=== PATIENT | female | born 1990 | race Caucasian/White ===

== ENCOUNTER 2016-10-26 18:45 | Emergency (ER) | payer OTHER ==
[2016-10-26] MEDS ORDERED: Ketorolac INJ* 60 MG/2 ML VIAL IM ONE (22:44)
[2016-10-26] MEDS ORDERED: LORazepam TAB(*) 1 MG PO ONE (22:45)
[2016-10-26 23:04] VITALS: BP 129/63
--- NOTE | 2016-10-26 23:10 | ED ---
Back Pain - HPI Summary HPI Summary: Patient presents with low back pain. Denies injury. Previous issues with low back pain. MRI shows herniated disc which has been stable since 2014. She is on chronic muscle relaxers but denies pain management. She takes Naproxen daily without relief. Pain radiates down to bilateral legs with no numbness or tingling. - History of Current Complaint Chief Complaint: EDBackInjuryPain Stated Complaint: BACK PAIN Time Seen by Provider: 10/26/16 21:52 Hx Obtained From: Patient Hx Last Menstrual Period: 2 weeks ago Onset/Duration: Gradual Onset Onset/Duration: Started Hours Ago Timing: Constant Back Pain Location: Is Discrete @ - low back Severity Initially: Moderate Severity Currently: Moderate Pain Intensity: 9 Pain Scale Used: 0-10 Numeric Character: Aching, Throbbing Aggravating Symptom(s): Movement, Lifting Alleviating Symptom(s): Rest, Position Associated Signs And Symptoms: Positive: Negative - Risk Factors AAA Risk Factors: Negative TAD Risk Factors: Negative Cauda Equina Risk Factors: Negative Epidural Abscess Risk Factors: Negative - Allergies/Home Medications Allergies/Adverse Reactions: Allergies Allergy/AdvReac Type Severity Reaction Status Date / Time Ciprofloxacin Allergy Intermediate Hives Verified 09/17/16 13:34 Ketorolac Tromethamine Allergy Shortness Verified 09/17/16 13:34 [From Toradol] of Breath Metronidazole [From Flagyl] Allergy Rash Verified 09/17/16 13:34 NSAIDs Allergy Shortness Verified 09/17/16 13:34 of Breath PMH/Surg Hx/FS Hx/Imm Hx Previously Healthy: Yes Endocrine/Hematology History: Denies: Hx Diabetes, Hx Thyroid Disease Cardiovascular History: Denies: Hx Hypertension, Hx Pacemaker/ICD Respiratory History: Denies: Hx Asthma, Hx Chronic Obstructive Pulmonary Disease (COPD) GI History: Denies: Hx Ulcer History: Denies: Hx Renal Disease Sensory History: Denies: Hx Hearing Aid Psychiatric History: Reports: Hx Panic Disorder - Surgical History Surgery Procedure, Year, and Place: Appendectomy. D+C. Gallbladder - Immunization History Date of Influenza Vaccine: none Hx Pertussis Vaccination: No Immunizations Up to Date: Unable to Obtain/Confirm Infectious Disease History: No Infectious Disease History: Denies: Hx Hepatitis, Hx Human Immunodeficiency Virus (HIV), History Other Infectious Disease, Traveled Outside the [place] in Last 30 Days - Social History Occupation: Unemployed Lives: With Family Alcohol Use: None Hx Substance Use: No Substance Use Type: Reports: None Hx Tobacco Use: No Smoking Status (MU): Never Smoked Tobacco Review of Systems Constitutional: Negative Eyes: Negative Cardiovascular: Negative Respiratory: Negative Genitourinary: Negative Positive: no symptoms reported, see HPI Positive: Arthralgia Neurological: Negative Psychological: Normal All Other Systems Reviewed And Are Negative: Yes Physical Exam Triage Information Reviewed: Yes Vital Signs On Initial Exam: Initial Vitals Temp Pulse Resp BP Pulse Ox 98.8 F 87 18 116/79 100 10/26/16 18:53 10/26/16 18:53 10/26/16 18:53 10/26/16 18:53 10/26/16 18:53 Vital Signs Reviewed: Yes Appearance: Positive: Well-Appearing, Well-Nourished Skin: Positive: Warm, Skin Color Reflects Adequate Perfusion Neck: Positive: Supple, Nontender, No Lymphadenopathy Respiratory/Lung Sounds: Positive: Clear to Auscultation, Breath Sounds Present Cardiovascular: Positive: Normal, RRR, Pulses are Symmetrical in both Upper and Lower Extremities Musculoskeletal: Positive: Other - Due to patient pain around injury, physical exam was limited. Limited ROM. Flip Test negative. Straight leg raise positive. Kernig test positive. Negative Bab[place]i. Hip flexion and extension, knee extension, dorsiflexion, great toe extension and plantar flexion intact. Rotating at hips limited d/t pain. Nerve roots L4-S2 reflexes intact. L1-S2 nerve root sensory intact. No saddle anesthesia. Gait normal. Neurological: Positive: Sensory/Motor Intact, Alert, Oriented to Person Place, Time, Other Psychiatric: Positive: Normal AVPU Assessment: Alert Diagnostics - Vital Signs Vital Signs Temp Pulse Resp BP Pulse Ox 10/26/16 19:59 98.8 F 87 18 116/79 99 10/26/16 18:53 98.8 F 87 18 116/79 100 - Laboratory Lab Statement: Any lab studies that have been ordered have been reviewed, and results considered in the medical decision making process. Back Pain Course/Dx - Course Course Of Treatment: D/t patient chronic back pain, did not image the spine. Patient agrees. Encouraged Ibuprofen 600mg three times daily with meals for pain. Return precautions given. Patient prefers to take toradol and continue her at home muscle relaxers. Lidocaine patch rx. Educated patient regarding back injuries and healing time and the need for further imaging if discomfort is present for > 6 weeks. Given pain management and muscle relaxers for relief of pain. Patient OK with discharge and will follow up as directed. - Diagnoses Differential Diagnosis/HQI/PQRI: Positive: Herniated Disc, Strain, Sprain Provider Diagnoses: Low back pain Discharge - Discharge Plan Condition: Stable Disposition: HOME Prescriptions: Ketorolac TAB * [Toradol TAB *] 10 mg PO Q6H #16 tab Lidocaine PATCH 5%* [Lidoderm 5% Patch*] 1 patch TRANSDERM DAILY #5 patch Patient Education Materials: Acute Low Back Pain (ED), Lower Back Exercises (ED ) Referrals: Gardenia Velasco MD [Primary Care Provider] - Additional Instructions: Return to ED if symptoms worsen or fail to improve, notice worsening swelling, warmth or redness around the joint, develop fever, or pain is uncontrolled with OTC medications. Moist heat to the area for comfort. Warm showers or baths may improve symptoms. It is important to remain mobile as tolerated to prevent stiffening of the joints and delay healing. Follow up with your PCP. If symptoms remain for > 6 weeks, please seek special medical attention from an orthopedic physician.
== END 2016-10-26 23:01 | disposition home or self-care (01) ==
LOC: ED 18:45
DX: M54.5 Low back pain (principal)
CPT/HCPCS: 96372; 99282; A9270-GY; J1885

== ENCOUNTER 2016-12-11 12:33 | Emergency (ER) | payer OTHER ==
--- NOTE | 2016-12-11 13:12 | ED ---
Skin Complaint - HPI Summary HPI Summary: This patient is a 26 year old F presenting to [facility] with a chief complaint of rash at bilateral UE since yesterday. The CC is described as worsening, painful , warm, burning, and aching. The patient rates the pain 4/10 in severity. Symptoms aggravated by nothing. Symptoms alleviated by nothing. Patient reports low grade fever, nausea, and slight abdominal pain. Patient denies SOB, and throat tightness. She reports that something might have bitten me. She denies an acknowledged tick bite. PMHx of anxiety. FHX anxiety; Lives with family; No tobacco, alch, drugs etc.; Physical Exam Findings include: Right upper extremity target lesion. Erythematous macules. Two of which are with a slightly raised border. Internal pallors or central clearing with 2cm in circumference. Two left lateral arm. One at ventral surface of right wrist. Other erythematous macules are with no central clearing. She also states that she slept on her couch a few nights ago. - History of Current Complaint Chief Complaint: EDRashSkinAbscess Time Seen by Provider: 12/11/16 12:42 Stated Complaint: RASH ON LT ARM Hx Obtained From: Patient Hx Last Menstrual Period: 2 weeks ago Onset/Duration: Started Days Ago Skin Exposure Onset/Duration: Days Ago Timing: Constant Onset Severity: Moderate Current Severity: Moderate Pain Intensity: 4 Pain Scale Used: 0-10 Numeric Skin Location: Arm Character: Pruritus, Redness, Raised Aggravating Symptom(s): Nothing Alleviating Symptom(s): Nothing Associated Signs & Symptoms: Nausea Related History: Insect Bite/Sting - Allergy/Home Medications Allergies/Adverse Reactions: Allergies Allergy/AdvReac Type Severity Reaction Status Date / Time Ciprofloxacin Allergy Intermediate Hives Verified 12/11/16 12:38 Ketorolac Tromethamine Allergy Shortness Verified 12/11/16 12:38 [From Toradol] of Breath Metronidazole [From Flagyl] Allergy Rash Verified 12/11/16 12:38 NSAIDs Allergy Shortness Verified 12/11/16 12:38 of Breath PMH/Surg Hx/FS Hx/Imm Hx Previously Healthy: Yes Endocrine/Hematology History: Denies: Hx Diabetes, Hx Thyroid Disease Cardiovascular History: Denies: Hx Hypertension, Hx Pacemaker/ICD Respiratory History: Denies: Hx Asthma, Hx Chronic Obstructive Pulmonary Disease (COPD) GI History: Denies: Hx Ulcer History: Denies: Hx Renal Disease Sensory History: Denies: Hx Hearing Aid Psychiatric History: Reports: Hx Panic Disorder - Surgical History Surgery Procedure, Year, and Place: Appendectomy. D+C. Gallbladder - Immunization History Date of Influenza Vaccine: none Hx Pertussis Vaccination: No Immunizations Up to Date: Unable to Obtain/Confirm Infectious Disease History: No Infectious Disease History: Denies: Hx Hepatitis, Hx Human Immunodeficiency Virus (HIV), History Other Infectious Disease, Traveled Outside the [place] in Last 30 Days - Social History Occupation: Employed Full-time Lives: With Family Alcohol Use: None Hx Substance Use: No Substance Use Type: Reports: None Hx Tobacco Use: No Smoking Status (MU): Never Smoked Tobacco Review of Systems Constitutional: Negative Eyes: Negative Cardiovascular: Negative Respiratory: Negative Positive: Abdominal Pain - intermittent, Nausea Positive: no symptoms reported, see HPI Positive: Rash Neurological: Negative All Other Systems Reviewed And Are Negative: Yes Physical Exam Triage Information Reviewed: Yes Vital Signs On Initial Exam: Initial Vitals Temp Pulse Resp BP Pulse Ox 98.5 F 88 16 117/76 100 12/11/16 12:35 12/11/16 12:35 12/11/16 12:35 12/11/16 12:35 12/11/16 12:35 Vital Signs Reviewed: Yes Appearance: Positive: Well-Appearing, No Pain Distress Skin: Positive: Warm, Skin Color Reflects Adequate Perfusion, Other - erythematous macules to the upper bilateral shoulders Head/Face: Positive: Normal Head/Face Inspection Eyes: Positive: EOMI, NARCISO, Conjunctiva Clear ENT: Positive: Hearing grossly normal Neck: Positive: Supple, No Lymphadenopathy Respiratory/Lung Sounds: Positive: Clear to Auscultation, Breath Sounds Present Cardiovascular: Positive: RRR, Pulses are Symmetrical in both Upper and Lower Extremities Musculoskeletal: Positive: Strength/ROM Intact Neurological: Positive: Facial Symmetry Psychiatric: Positive: Normal Diagnostics - Vital Signs Vital Signs Temp Pulse Resp BP Pulse Ox 12/11/16 12:35 98.5 F 88 16 117/76 100 - Laboratory Lab Statement: Any lab studies that have been ordered have been reviewed, and results considered in the medical decision making process. Course/Dx - Course Course Of Treatment: Right upper extremity target lesion. Erythematous macules. Two of which are with a slightly raised border. Internal pallors or central clearing with 2cm in circumference. Two left lateral arm. One at ventral surface of right wrist. Other erythematous macules are with no central clearing. Intermittent nausea. Denies known tick bites. Denies known bug bites. Will DC home with hydrocortisone cream and prednisone. Lyme serology obtained and will call with positive results. - Differential Diagnoses - Skin Complaint Differential Diagnoses: Contact Dermatitis, Poison [place], Poison [place], Scabies - Diagnoses Provider Diagnoses: Bug bite Discharge - Discharge Plan Condition: Stable Disposition: HOME Prescriptions: Hydrocortisone 2.5% CREAM(NF) 1 applic TOPICAL QID #1 tube predniSONE TAB* [Deltasone TAB*] 50 mg PO DAILY #5 tab MDD 1 Patient Education Materials: Insect Bite or Sting (ED) Referrals: Gardenia Velasco MD [Primary Care Provider] - Additional Instructions: Follow up with PCP as needed Hydrocortisone 2.5% to the area four times per day Continue with your at home hydroxyzine Prednisone daily for 5 days Cold compresses to the area for comfort If you develop worsening symptoms, return to the ED immediately.
[2016-12-11 13:27] VITALS: BP 117/73
== END 2016-12-11 13:28 | disposition home or self-care (01) ==
LOC: ED 12:33
DX: S40.862A Insect bite (nonvenomous) of left upper arm, initial encounter (principal); R21 Rash and other nonspecific skin eruption; W57.XXXA Bitten or stung by nonvenomous insect and other nonvenomous arthropods, initial encounter; Y93.89 Activity, other specified; Y92.89 Other specified places as the place of occurrence of the external cause; Y99.9 Unspecified external cause status
CPT/HCPCS: 86618; 99282

== ENCOUNTER 2017-04-19 18:58 | Emergency (ER) | payer OTHER ==
[2017-04-19] MEDS ORDERED: NS 0.9% 1000 ML* 1,000 ML IV ONE (19:29)
[2017-04-19] MEDS ORDERED: Metoclopramide IV* 5 MG/ML 2 ML VIAL IV ONE (19:31)
[2017-04-19] MEDS ORDERED: Pantoprazole IV* 40 MG IV ONE (19:32)
[2017-04-19] MEDS ORDERED: LORazepam INJ* 2 MG/ML 1 ML VIAL IV PUSH ONE (19:32)
[2017-04-19 19:52] LABS: ABS Basophils 0.1 10^3/ul (0-0.2); ABS Eosinophils 0.1 10^3/ul (0-0.6); ABS Lymphocytes 1.6 10^3/ul (1.0-4.8); ABS Monocytes 0.7 10^3/ul (0-0.8); ABS Neutrophils 3.6 10^3/ul (1.5-7.7); ABS Nucleated RBC 0 10^3/ul; Hematocrit 34 % (35-47); Hemoglobin 10.8 g/dl (12.0-16.0); Mean Corpuscular HGB Conc 32 g/dl (31-36); Mean Corpuscular Hemoglobin 24 pg (27-31); Mean Corpuscular Volume 74 fL (80-97); Mean Platelet Volume 9 um3 (7.4-10.4); Nucleated Red Blood Cells % 0; Platelet Count 225 10^3/ul (150-450); Red Blood Count 4.58 10^6/ul (4.0-5.4); Red Cell Distribution Width 17 % (10.5-15)
[2017-04-19 21:14] VITALS: BP 105/60
--- NOTE | 2017-04-19 21:27 | ED ---
Rhett Sanchez Gabriel, scribamanda for Mel Galvan MD on 04/19/17 at 1917 . HPI Chest Pain - HPI Summary HPI Summary: This patient is a 27 year old F BIBA to [facility] with a chief complaint of CP since earlier today. The patient rates the pain 5/10 in severity and described as it tightness. Patient reports tingling in hands and vomiting. Patient denies diarrhea. Patient has a history of anxiety and is on tramadol for her back. Additionally she reports recent illness for the past 2 days. Patient is not on BC. - History of Current Complaint Chief Complaint: EDChestWallPain Time Seen by Provider: 04/19/17 19:14 Hx Obtained From: Patient Hx Last Menstrual Period: 2 weeks ago Onset/Duration: Started Hours Ago, Still Present Timing: Constant Initial Severity: Moderate Current Severity: Moderate Pain Intensity: 5 Pain Scale Used: 0-10 Numeric Chest Pain Location: Diffuse Chest Pain Radiates: Yes Chest Pain Radiates To:: Arm Character: Pressure/Squeezing Associated Signs and Symptoms: Positive: Negative - diarrhea, Chest Pain, Anxiety, Tingling - in hands, Vomiting - Allergy/Home Medications Allergies/Adverse Reactions: Allergies Allergy/AdvReac Type Severity Reaction Status Date / Time Ciprofloxacin Allergy Intermediate Hives Verified 12/11/16 12:38 Metronidazole [From Flagyl] Allergy Rash Verified 12/11/16 12:38 PMH/Surg Hx/FS Hx/Imm Hx Endocrine/Hematology History: Denies: Hx Diabetes, Hx Thyroid Disease Cardiovascular History: Denies: Hx Hypertension, Hx Pacemaker/ICD Respiratory History: Denies: Hx Asthma, Hx Chronic Obstructive Pulmonary Disease (COPD) GI History: Denies: Hx Ulcer History: Denies: Hx Renal Disease Sensory History: Denies: Hx Hearing Aid Psychiatric History: Reports: Hx Anxiety, Hx Panic Disorder - Surgical History Surgery Procedure, Year, and Place: Appendectomy. D+C. Gallbladder - Immunization History Date of Influenza Vaccine: none Infectious Disease History: No Infectious Disease History: Denies: Hx Hepatitis, Hx Human Immunodeficiency Virus (HIV), History Other Infectious Disease, Traveled Outside the [place] in Last 30 Days - Family History Known Family History: Negative: Hypertension, Seizure Disorder - Social History Alcohol Use: None Hx Substance Use: No Substance Use Type: Reports: None Hx Tobacco Use: No Smoking Status (MU): Never Smoked Tobacco Review of Systems Positive: Chest Pain Positive: Vomiting. Negative: Diarrhea Positive: Numbness - and tingling in hands All Other Systems Reviewed And Are Negative: Yes Physical Exam - Summary Physical Exam Summary: VITAL SIGNS: Reviewed. GENERAL: Patient is a well-developed and nourished female who is lying comfortable in the stretcher. Patient is not in any acute respiratory distress. Patient is somewhat anxious. HEAD AND FACE: No signs of trauma. No ecchymosis, hematomas or skull depressions. No sinus tenderness. EYES: PERRLA, EOMI x 2, No injected conjunctiva, no nystagmus. EARS: Hearing grossly intact. Ear canals and tympanic membranes are within normal limits. MOUTH: Oropharynx within normal limits. NECK: Supple, trachea is midline, no adenopathy, no JVD, no carotid bruit, no c- spine tenderness, neck with full ROM. CHEST: Symmetric, no tenderness at palpation. LUNGS: Clear to auscultation bilaterally. No wheezing or crackles. CVS: Patient is regular but tachycardic S1 and S2 present, no murmurs or gallops appreciated. ABDOMEN: Soft, mild epigastric tenderness. No signs of distention. No rebound no guarding, and no masses palpated. Bowel sounds are normal. EXTREMITIES: FROM in all major joints, no edema, no cyanosis or clubbing. NEURO: Alert and oriented x 3. No acute neurological deficits. Speech is normal and follows commands. SKIN: Dry and warm Triage Information Reviewed: Yes Vital Signs On Initial Exam: Initial Vitals Temp Pulse Resp BP Pulse Ox 98.1 F 100 18 119/71 100 04/19/17 19:06 04/19/17 19:06 04/19/17 19:06 04/19/17 19:06 04/19/17 19:06 Vital Signs Reviewed: Yes - [place] Coma Scale Coma Scale Total: 15 Diagnostics - Vital Signs Vital Signs Temp Pulse Resp BP Pulse Ox 04/19/17 19:14 104 20 100 04/19/17 19:13 123/76 04/19/17 19:06 98.1 F 100 18 119/71 100 - Laboratory Result Diagrams: 04/19/17 19:36 04/19/17 19:36 Lab Statement: Any lab studies that have been ordered have been reviewed, and results considered in the medical decision making process. - EKG 19:11 Cardiac Rate: Tachycardia EKG Rhythm: Sinus Tachycardia - at 102 BPM EKG Interpretation: Normal axis. Normal interval. No ischemic changes Chest Pain Course/Dx - Course Assessment/Plan: This patient is a 27 year old F BIBA to [facility] with a chief complaint of CP since earlier today. The patient rates the pain 5/10 in severity and described as it tightness. Patient reports tingling in hands and vomiting. Patient denies diarrhea. Patient has a history of anxiety and is on tramadol for her back. Additionally she reports recent illness for the past 2 days. Patient is not on BC. An EKG reveals sinus tachycardia. Test results with no significant abnormalities. In the ED course the patient was given Ativan, Reglan, IV fluids, and protonix. Patient will be discharged with a Dx of anxiety and follow up with PCP in 2 days. The patient is agreeable with this plan. - Diagnoses Provider Diagnoses: Anxiety Discharge - Discharge Plan Condition: Stable Disposition: HOME Patient Education Materials: Anxiety (ED) Referrals: Gardenia Velasco MD [Primary Care Provider] - 2 Days Additional Instructions: RETURN TO EMERGENCY DEPARTMENT FOR ANY NEW OR WORSENING SYMPTOMS The documentation as recorded by the Rhett beltrán Gabriel accurately reflects the service I personally performed and the decisions made by , Mel Galvan MD.
== END 2017-04-19 21:20 | disposition home or self-care (01) ==
LOC: ED 18:58
DX: F41.9 Anxiety disorder, unspecified (principal); R07.9 Chest pain, unspecified; R11.10 Vomiting, unspecified
CPT/HCPCS: 36415; 80053; 84443; 84484; 84702; 85025; 85379; 93005; 96374; 96375; 99283; J2060; J2765

== ENCOUNTER 2017-07-31 23:01 | Emergency (ER) | payer OTHER ==
[2017-08-01] MEDS ORDERED: NS 0.9% 1000 ML* 1,000 ML IV ONE (00:17)
[2017-08-01] MEDS ORDERED: PROCHLORPERAZINE INJ 5 MG/ML 2 ML VIAL IV ONE (00:17)
[2017-08-01 02:05] LABS: ABS Basophils 0.1 10^3/ul (0-0.2); ABS Eosinophils 0.4 10^3/ul (0-0.6); ABS Lymphocytes 1.9 10^3/ul (1.0-4.8); ABS Monocytes 0.4 10^3/ul (0-0.8); ABS Neutrophils 4.4 10^3/ul (1.5-7.7); ABS Nucleated RBC 0 10^3/ul; Eosinophil % 6.1 % (0-6); Hematocrit 32 % (35-47); Hemoglobin 10.3 g/dl (12.0-16.0); Mean Corpuscular HGB Conc 32 g/dl (31-36); Mean Corpuscular Hemoglobin 23 pg (27-31); Mean Corpuscular Volume 72 fL (80-97); Mean Platelet Volume 8.8 um3 (7.4-10.4); Nucleated Red Blood Cells % 0; Platelet Count 259 10^3/ul (150-450); Red Blood Count 4.46 10^6/ul (4.0-5.4); Red Cell Distribution Width 17 % (10.5-15); White Blood Count 7.1 10^3/ul (3.5-10.8)
--- NOTE | 2017-08-01 02:10 | ED ---
Abdominal Pain/Female - HPI Summary HPI Summary: Patient is a 27-year-old female who presents to emergency department for abdominal pain, vomiting or diarrhea times one week.Again past medical history. History of cholecystectomy and appendectomy. Denies passing blood. No history of ulcerative colitis or Crohn's disease. Patient denies fever, chills , upper respiratory symptoms, urinary symptoms. Patient states she was seen at an outside facility earlier in the week and had blood work done which is unremarkable. She states she was placed on Augmentin because she had a fever. She has been taking Zofran at home with no improvement of vomiting. Symptoms are moderate in severity. No current modifying factors. Pain is located to left upper quadrant and is sharp and constant in nature. - History of Current Complaint Chief Complaint: EDAbdPain Stated Complaint: ABD PAIN Time Seen by Provider: 07/31/17 23:52 Hx Last Menstrual Period: 2 weeks ago Pain Intensity: 8 Allergies/Adverse Reactions: Allergies Allergy/AdvReac Type Severity Reaction Status Date / Time ciprofloxacin Allergy Hives Verified 07/31/17 23:43 metronidazole Allergy Rash Verified 07/31/17 23:43 Home Medications: Home Medications ALPRAZolam [Alprazolam] 0.25 mg PO BID PRN 07/31/17 [History Confirmed 07/31/17] Methocarbamol TAB* [Robaxin 500 MG TAB*] 500 mg PO TID PRN 07/31/17 [History Confirmed 07/31/17] Mirtazapine TAB* [Remeron TAB*] 15 mg PO QPM 07/31/17 [History Confirmed ] Tramadol HCl [Tramadol HCl] 50 mg PO TID PRN 07/31/17 [History Confirmed ] PMH/Surg Hx/FS Hx/Imm Hx Previously Healthy: Yes Endocrine/Hematology History: Denies: Hx Diabetes, Hx Thyroid Disease Cardiovascular History: Denies: Hx Hypertension, Hx Pacemaker/ICD Respiratory History: Denies: Hx Asthma, Hx Chronic Obstructive Pulmonary Disease (COPD) GI History: Denies: Hx Ulcer History: Denies: Hx Renal Disease Sensory History: Denies: Hx Hearing Aid Psychiatric History: Reports: Hx Anxiety, Hx Panic Disorder - Surgical History Surgery Procedure, Year, and Place: Appendectomy. D+C. Gallbladder - Immunization History Date of Tetanus Vaccine: utd Date of Influenza Vaccine: none Infectious Disease History: No Infectious Disease History: Denies: Hx Hepatitis, Hx Human Immunodeficiency Virus (HIV), History Other Infectious Disease, Traveled Outside the [place] in Last 30 Days - Family History Known Family History: Negative: Hypertension, Seizure Disorder - Social History Occupation: Unemployed Lives: With Family Alcohol Use: Rare Hx Substance Use: No Substance Use Type: Reports: None Hx Tobacco Use: No Smoking Status (MU): Never Smoked Tobacco Review of Systems Positive: Fever Eyes: Negative ENT: Negative Cardiovascular: Negative Respiratory: Negative Positive: Abdominal Pain, Vomiting, Diarrhea, Nausea Genitourinary: Negative Musculoskeletal: Negative Skin: Negative Neurological: Negative All Other Systems Reviewed And Are Negative: Yes Physical Exam Triage Information Reviewed: Yes Vital Signs On Initial Exam: Initial Vitals Temp Pulse Resp BP Pulse Ox 97.4 F 100 20 128/76 100 07/31/17 23:03 07/31/17 23:03 07/31/17 23:03 07/31/17 23:03 07/31/17 23:03 Vital Signs Reviewed: Yes Appearance: Positive: Well-Appearing - Patient lying in bed in no acute distress. Family present. Head/Face: Positive: Normal Head/Face Inspection Eyes: Positive: Normal Respiratory/Lung Sounds: Positive: Clear to Auscultation, Breath Sounds Present Cardiovascular: Positive: Normal, RRR Abdomen Description: Positive: Other: - Abdomen soft throughout. Patient epigastric region and left upper quadrant. No rebound tenderness or guarding. No CVA tenderness bilaterally. Musculoskeletal: Positive: Normal Neurological: Positive: Normal, CN Intact II-III Diagnostics - Vital Signs Vital Signs Temp Pulse Resp BP Pulse Ox 08/01/17 01:48 100 98 08/01/17 01:46 129/78 08/01/17 01:30 45/18 08/01/17 00:30 122/74 08/01/17 00:24 103 99 08/01/17 00:01 102 127/72 100 08/01/17 00:00 97 100 07/31/17 23:44 104 100 07/31/17 23:43 127/77 07/31/17 23:03 97.4 F 100 20 128/76 100 - Laboratory Lab Results: Lab Results 08/01/17 08/01/17 Range/Units 00:40 00:40 WBC 7.1 (3.5-10.8) 10^3/ul RBC 4.46 (4.0-5.4) 10^6/ul Hgb 10.3 L (12.0-16.0) g/dl Hct 32 L (35-47) % MCV 72 L (80-97) fL MCH 23 L (27-31) pg MCHC 32 (31-36) g/dl RDW 17 H (10.5-15) % Plt Count 259 (150-450) 10^3/ul MPV 8.8 (7.4-10.4) um3 Neut % (Auto) 61.3 (38-83) % Lymph % (Auto) 26.0 (25-47) % [place] % (Auto) 5.8 (0-7) % Eos % (Auto) 6.1 H (0-6) % Baso % (Auto) 0.8 (0-2) % Absolute Neuts (auto) 4.4 (1.5-7.7) 10^3/ul Absolute Lymphs (auto) 1.9 (1.0-4.8) 10^3/ul Absolute Monos (auto) 0.4 (0-0.8) 10^3/ul Absolute Eos (auto) 0.4 (0-0.6) 10^3/ul Absolute Basos (auto) 0.1 (0-0.2) 10^3/ul Absolute Nucleated RBC 0 10^3/ul Nucleated RBC % 0 Beta HCG, Quant < 0.60 mIU/mL Result Diagrams: 08/01/17 00:40 08/01/17 00:40 Lab Statement: Any lab studies that have been ordered have been reviewed, and results considered in the medical decision making process. Abdominal Pain Fem Course/Dx - Course Course Of Treatment: Patient presenting to the ER for ongoing left upper quadrant abdominal pain, vomiting and diarrhea. She is afebrile with stable vital signs. We'll recheck basic labs this evening. Differential diagnosis gastritis, viral gastroenteritis, pancreatitis. She started on IV fluids and given a dose of compazine for nausea. CBC is unremarkable. Neg . On re- exam pt. is feeling better after medication. Pt. will be signed out to Dr. Dorado for CMP results and dispo. Suspect gastritis vs viral gastroenteritis. - Diagnoses Differential Diagnosis: Positive: Other - Gastritis, viral gastroenteritis, PUD Provider Diagnoses: Viral gastroenteritis, Gastritis Discharge - Sign-Out/Discharge Documenting (check all that apply): Sign-Out Patient Signing out patient TO: Jeff Dorado - Discharge Plan Condition: Good Disposition: HOME Prescriptions: Famotidine TAB* [Pepcid 20 MG TAB*] 20 mg PO DAILY #14 tab Prochlorperazine Maleate [Compazine] 10 mg PO Q6H #9 tablet Patient Education Materials: Gastritis (ED), Gastroenteritis (ED) Referrals: Gardenia Velasco MD [Primary Care Provider] - Additional Instructions: Call PCP on Wednesday for an appointment Take medication as directed Return to ER if symptoms change or worsen - Billing Disposition and Condition Condition: GOOD Disposition: HOME
[2017-08-01 03:26] LABS: Urine Appearance Clear; Urine Blood 1+ (Negative); Urine Color Yellow; Urine Ketones 1+ (Negative); Urine Protein Negative (Negative); Urine Urobilinogen Positive (Negative)
[2017-08-01 04:12] VITALS: BP 134/78
== END 2017-08-01 04:11 | disposition home or self-care (01) ==
LOC: ED 23:01
DX: A08.4 Viral intestinal infection, unspecified (principal); K29.70 Gastritis, unspecified, without bleeding; Z32.02 Encounter for pregnancy test, result negative; F41.0 Panic disorder [episodic paroxysmal anxiety]; Z88.1 Allergy status to other antibiotic agents
CPT/HCPCS: 36415; 80053; 81003; 81015; 83690; 84702; 85025; 87077; 87086; 87186; 96374; 99283; J0780